=== PATIENT | female | born 1975 | race Caucasian/White ===

== ENCOUNTER 2020-10-07 15:38 | Outpatient (CLI) | payer BC ==
--- NOTE | 2020-10-07 16:00 | RAD ---
XR Knee Lt 4 View STANDARD HISTORY: Left anterior knee pain FINDINGS: No fracture or dislocation is identified.
== END 2020-10-07 15:39 | disposition home or self-care (01) ==
LOC: MADRAD 15:38
PROVIDERS: ATTEND Family Medicine
DX: M25.562 Pain in left knee (principal)